=== PATIENT | female | born 1950 | race Caucasian/White ===

== ENCOUNTER 2017-04-07 10:28 | Emergency (ER) | payer MEDICARE, OTHER ==
[~2017-04-07] VITALS: Ht 162.6 cm; Wt 73.0 kg
[~2017-04-07 10:28] MED LIST: ALIGN4 MG PO; ANTIVERT12.5 MG PO; ANTIVERT25 MG PO; BENADRYL ALLE12.5 MG PO; BYSTOLIC 5 MG5 MG PO; CIPRO500 MG PO; CIPROFLOXACIN500 M1 PO; COZAAR 50 MG TA50 M2 PO; CYCLOBENZAPRINE5 MG PO; DIFLUCAN150 MG PO; DONNATAL EXTEN1 EACH; NAPROSYN375 MG PO; NORCO 5-325 TA1 EACH PO; OTHER MISCELL; PHENOBARBITAL60 MG; PHENOBARBITAL64.8 MG PO; PLAVIX 75 MG TA75 M1 PO; PRILOSEC40 MG PO; PROBIOTIC1 EAC1 PO; PYRIDIUM200 MG PO; ULTRAM 50MG TAB50 MG PO; VALIUM5 MG PO; WELCHOL 625 MG625 M1 PO; ZPAK PO
[2017-04-07] MEDS ORDERED: COZAAR 25 MG TA25 M1 PO (10:35)
[2017-04-07 11:54] VITALS: BP 142/57
== END 2017-04-07 11:55 | disposition home or self-care (01) ==
LOC: M.ERS 10:28
DX: M25.572 Pain in left ankle and joints of left foot (principal); I10 Essential (primary) hypertension; G43.909 Migraine, unspecified, not intractable, without status migrainosus; G40.909 Epilepsy, unspecified, not intractable, without status epilepticus; E78.00 Pure hypercholesterolemia, unspecified; Z86.73 Personal history of transient ischemic attack (TIA), and cerebral infarction without residual deficits; Z90.710 Acquired absence of both cervix and uterus; Z98.890 Other specified postprocedural states; Z87.440 Personal history of urinary (tract) infections; Z88.1 Allergy status to other antibiotic agents; Z88.6 Allergy status to analgesic agent; Z88.8 Allergy status to other drugs, medicaments and biological substances; Z88.2 Allergy status to sulfonamides

== ENCOUNTER → 2017-05-15 | Outpatient (CLI) | payer MEDICARE, OTHER ==
[~2017-05-15] MED LIST changes: +COZAAR 25 MG TA25 M1 PO
== END ==
LOC: M.CT 04-04 09:30
DX: I71.4 Abdominal aortic aneurysm, without rupture (principal); N28.1 Cyst of kidney, acquired; D71 Functional disorders of polymorphonuclear neutrophils

== ENCOUNTER 2017-10-06 18:08 | Emergency (ER) | payer MEDICARE, OTHER ==
[~2017-10-06] VITALS: Ht 162.6 cm; Wt 64.0 kg
[2017-10-06] MEDS ORDERED: NORCO 5-325 TA1 EACH PO (18:57)
[2017-10-06 19:15] VITALS: BP 118/67
== END 2017-10-06 19:33 | disposition home or self-care (01) ==
LOC: M.ERS 18:08
DX: S93.491A Sprain of other ligament of right ankle, initial encounter (principal); E78.5 Hyperlipidemia, unspecified; I10 Essential (primary) hypertension; G43.909 Migraine, unspecified, not intractable, without status migrainosus; Z86.73 Personal history of transient ischemic attack (TIA), and cerebral infarction without residual deficits; Z88.2 Allergy status to sulfonamides; Z91.041 Radiographic dye allergy status; Z88.6 Allergy status to analgesic agent; Z88.8 Allergy status to other drugs, medicaments and biological substances; X50.1XXA Overexertion from prolonged static or awkward postures, initial encounter; Y93.89 Activity, other specified; Y92.89 Other specified places as the place of occurrence of the external cause; Y99.8 Other external cause status

== ENCOUNTER → 2017-11-19 | Outpatient (CLI) | payer MEDICARE, OTHER | LOC: M.ULTRA 09:03 | DX: G45.9 Transient cerebral ischemic attack, unspecified (principal); I77.9 Disorder of arteries and arterioles, unspecified; I10 Essential (primary) hypertension; E78.5 Hyperlipidemia, unspecified; I71.4 Abdominal aortic aneurysm, without rupture; G43.909 Migraine, unspecified, not intractable, without status migrainosus ==

== ENCOUNTER → 2017-12-15 | Outpatient (CLI) | payer MEDICARE, OTHER | LOC: M.RAD 11-27 09:00 | DX: E89.40 Asymptomatic postprocedural ovarian failure (principal); Z86.73 Personal history of transient ischemic attack (TIA), and cerebral infarction without residual deficits ==

== ENCOUNTER 2018-04-07 13:31 | Inpatient (IN) | payer MEDICARE, OTHER ==
[~2018-04-07] VITALS: Ht 162.6 cm; Wt 60.5 kg
[2018-04-07 13:38] VITALS: BP 151/82
[2018-04-07] MEDS ORDERED: OMEPRAZOLE40 MG PO (13:41)
[2018-04-07 14:09] LABS: ABSOLUTE LYMPHOCYTES 0.7 thou/uL (0.8-5.3); ABSOLUTE MONOCYTES 0.3 thou/uL (0.0-1.2); ABSOLUTE NEUTROPHILS 1.9 thou/uL (1.6-8.1); BASOPHILS 1.2 %; EOSINOPHILS 0.9 %; HEMATOCRIT 35.7 % (37.0-47.0); HEMOGLOBIN 11.9 gm/dL (12.0-15.0); MCH 32.6 pg (26.0-34.0); MCHC 33.3 g/dL (28.0-37.0); MCV 98.1 fL (80.0-100.0); MONOCYTES 10.5 %; NUCLEATED RBCS 0 /100WBC; PLATELET COUNT* 264 thou/uL (150-400); POLYS 65.4 %; RBC 3.64 mil/uL (4.20-5.00); RDW-CV 13.3 % (10.5-14.5)
[2018-04-07 14:17] LABS: ANION GAP 8 mmol/L (7-16); BUN 21 mg/dL (7-18); CALCIUM 8.9 mg/dL (8.5-10.1); CHLORIDE 105 mmol/L (98-107); CO2 28 mmol/L (21-32); CREATININE 0.7 mg/dL (0.6-1.3); GLUCOSE 90 mg/dL (70-99); SODIUM 141 mmol/L (136-145)
[2018-04-07 14:34] LABS: ALBUMIN 3.6 g/dL (3.4-5.0); ALKALINE PHOSPHATASE 148 U/L (46-116); LIPASE 156 U/L (73-393); NT-PRO BRAIN NAT PEPTIDE 124 pg/mL (<300); SGOT 16 U/L (15-37); SGPT 19 U/L (30-65); TOTAL BILIRUBIN 0.2 mg/dL (<0.1-1.0); TOTAL PROTEIN 7.3 g/dL (6.4-8.2); TROPONIN-I LEVEL <0.06 ng/mL (<0.06)
[2018-04-07 16:42] LABS: URINE BILIRUBIN NEGATIVE (Negative); URINE BLOOD NEGATIVE (Negative); URINE CLARITY CLEAR; URINE COLOR YELLOW; URINE GLUCOSE-RANDOM NEGATIVE (Negative); URINE KETONES NEGATIVE (Negative); URINE LEUKOCYTES-REFLEX 1+ (Negative); URINE NITRITE-REFLEX NEGATIVE (Negative); URINE PROTEIN NEGATIVE (Negative); URINE SPECIFIC GRAVITY 1.025 (1.005-1.030); URINE UROBILINOGEN 0.2 E.U./dl (0.2-1.0)
[2018-04-07 16:55] LABS: CALCIUM OXALATE >10 Many /LPF (None Seen); MUCUS >6 Heavy strn/LPF (None Seen)
[2018-04-07 16:56] LABS: CASTS None Seen /LPF (None Seen); SQUAMOUS >10 Many /LPF (0-3); URINE RBC 3-10 Few /HPF (0-2); URINE WBC-REFLEX 6-15 Few /HPF (0-5)
[2018-04-07 16:57] LABS: BACTERIA-REFLEX 1-9 Few /HPF (None Seen)
--- NOTE | 2018-04-07 17:05 | EKG ---
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 : 1950 Requested By: Bibi Reynolds Order Number: [id number] MD: Jose Antonio Alan Measurements Intervals [place] Rate: 118 P: 75 UT: 149 QRS: 18 QRSD: 131 T: 167 QT: 355 QTc: 498 Interpretive Statements Sinus tachycardia Ventricular premature complex Left bundle branch block Artifact in lead(s) I,II,III,aVR,aVL,aVF,V1,V2,V3,V5,V6 Compared to ECG 08/27/2016 00:09:01 Ventricular premature complex(es) now present Sinus rhythm no longer present Electronically Signed On 04-07-2018 17:05:39 MEDICAL AIDES TEACHER by Jose Antonio Alan [email or web address] <ELECTRONICALLY SIGNED> By: Jose Antonio Alan MD, FACC 04/07/18 1705 1335 1335 Jose Antonio Alan MD, FAC /EPI
--- NOTE | 2018-04-07 19:42 | NUR ---
REPORT TAKEN FROM RADHA, WAITING FOR PATIENT'S ARRIVAL TO FLOOR.
[2018-04-07 19:46] VITALS: BP 124/61
[2018-04-07 20:00] VITALS: BP 147/64
[2018-04-08] VITALS: BP 107/49; BP 113/50
[2018-04-08 04:00] VITALS: BP 107/61
--- NOTE | 2018-04-08 04:43 | NUR ---
PATIENT RESTED IN BED, NO ACUTE CHANGES. PATIENT DID NOT SHOW SIGNS OF DISTRESS. FALL PRECAUTIONS IN PLACE, CALL LIGHT WITH IN REACH, HOURLY ROUNDING OBSERVED, BED ALARM ON. PATIENT DID NOT COMPLAIN OF PAIN.
[2018-04-08] MEDS ORDERED: ANTIVERT25 MG (07:25)
--- NOTE | 2018-04-08 07:25 | NUR ---
CHANGE OF SHIFT BEDSIDE REPORT GIVEN PATIENT SEEN AT BEDSIDE IN BED RESTING AND WATCHING TV ASSUMED PATIENT CARE
[2018-04-08 08:00] VITALS: BP 124/52
--- NOTE | 2018-04-08 10:52 | NUR ---
MET WITH PT TO DISCUSS HOME SITUATION/DC PLANNING. PT LIVES ALONE. SHE IS INDEPENDENT AND USES WALKER PRN, MOSTLY AT NIGHT. SHE HAS SUPORTIVE FAMILY THAT ASSIST NEEDED. 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 SHE REPORTS FEELING IMPROVED AND HOPES TO GO HOME SOON. SON/NEO ZAVALETA IS DPOA
[2018-04-08 12:07] VITALS: BP 123/78
[2018-04-08] MEDS ORDERED: KEFLEX500 M1 PO ×2 (13:30→14:01)
--- NOTE | 2018-04-08 16:55 | 2DMMODE ---
[place] [address] 2 D/M-MODE ECHOCARDIOGRAM Name: DIANE LADD Room: [address] IN [facility]#: [id number] Admission: 04/07/18 Attend Phys: Roland Gore Discharge: Date of : 46 Date of Service: 04/08/18 1654 Report #: [id number] THIS REPORT FOR: //name// APPROVED REPORT Study performed: 04/08/2018 10:03:44 EXAM: Comprehensive 2D, Doppler, and color-flow Echocardiogram Patient Location: In-Patient Room #: [facility] Status: routine BSA: 1.65 HR: 82 bpm BP: 124/52 mmHg Rhythm: NSR Other Information Study Quality: Good Indications Chest Pain 2D Dimensions IVSd: 12.03 (7-11mm) LVOT Diam: 19.56 (18-24mm) LVDd: 32.18 mm PWd: 12.38 (7-11mm) Ascending Ao: 28.10 (22-36mm) LVDs: 24.62 (25-40mm) Aortic Root: 30.97 mm Volumes Left Atrial Volume (Systole) LA ESV Index: 30.00 mL/m2 Aortic Valve AoV Peak En.: 1.24 m/s AO Peak Gr.: 6.16 mmHg LVOT Max P.56 mmHg AO Mean Gr.: 2.70 mmHg LVOT Mean P.56 mmHg LVOT Max V: 0.94 m/s AO V2 VTI: 21.14 cm LVOT Mean V: 0.56 m/s DAWSON (VTI): 2.47 cm2 LVOT V1 VTI: 17.35 cm Mitral Valve E/A Ratio: 0.90 MV Decel. Time: 211.34 ms MV E Max En.: 0.65 m/[place] [address] 2 D/M-MODE ECHOCARDIOGRAM Name: DIANE LADD Room: [address] IN .R.#: [id number] Admission: 04/07/18 Attend Phys: Roland Gore Discharge: Date of : 46 Date of Service: 04/08/18 1654 Report #: [id number] PHT: 61.29 ms MVA (PHT): 3.59 cm2 TDI E/Lateral E': 5.42 E/Medial E': 5.91 Medial E' En.: 0.11 m/s Lateral E' En.: 0.12 m/s Pulmonary Valve PV Peak En.: 0.91 m/s PV Peak Gr.: 3.32 mmHg Tricuspid Valve RAP Estimate: 5.00 mmHg TR Peak Gr.: 23.35 mmHg RVSP: 28.00 mmHg PA Pressure: 28.00 mmHg Left Ventricle The left ventricle is normal size. There is septal wall motion abnormality compatible with LBBB There is normal left ventricular wall thickness. Left ventricular systolic function is mildly decreased. LVEF is 50%. Grade I - abnormal relaxation pattern. Right Ventricle The right ventricle is normal size. The right ventricular systolic function is normal. Atria The left atrium size is normal. The right atrium size is normal. Aortic Valve Mild aortic valve sclerosis. No aortic regurgitation is present. There is no aortic valvular stenosis. Mitral Valve The mitral valve is normal in structure. Trace mitral regurgitation. No evidence of mitral valve stenosis. Tricuspid Valve The tricuspid valve is normal in structure. Trace tricuspid regurgitation. No pulmonary hypertension. Pulmonic Valve The pulmonary valve is normal in structure. Trace [place] [address] 2 D/M-MODE ECHOCARDIOGRAM Name: DIANE LADD Room: [address]#: [id number] Admission: 04/07/18 Attend Phys: Roland Gore Discharge: Date of : 46 Date of Service: 04/08/18 1654 Report #: [id number] Great Vessels The aortic root is normal in size. IVC is normal in size and collapses >50% with inspiration. Pericardium There is no pericardial effusion. <Conclusion> The left ventricle is normal size. There is normal left ventricular wall thickness. Left ventricular systolic function is mildly decreased. LVEF is 50%. Grade I - abnormal relaxation pattern. The right ventricle is normal size. The left atrium size is normal. Mild aortic valve sclerosis. No aortic regurgitation is present. There is no aortic valvular stenosis. The mitral valve is normal in structure. Trace mitral regurgitation. The tricuspid valve is normal in structure. IVC is normal in size and collapses >50% with inspiration. There is no pericardial effusion. There is septal wall motion abnormality compatible with LBBB <ELECTRONICALLY SIGNED> By: Sharan Ramos MD, FACC 04/08/18 1654 1654 1654 Sharan Ramos MD, FACC /INF
--- NOTE | 2018-04-08 18:41 | CARDNUC ---
[place] [address] CARDIAC NUCLEAR IMAGING REPORT Name: DIANE LADD Room: [address] IN [facility]#: [id number] Admission: 04/07/18 Attend Phys: Roland Gore Discharge: Date of : 46 Date of Service: 04/08/18 1840 Report #: [id number] THIS REPORT FOR: //name// APPROVED REPORT Study performed: 04/08/2018 08:23:00 Indication: Chest pain, Dyspnea Patient Location: In-Patient Room #: 224 Stress Tech: Minna Cabrera Stress Nurse: Carina Cleaning RN Ht: 5 ft 4 in Wt: 134 lbs BSA: 1.65 m2 BMI: 22.99 Medical History Medical History: tia, pfo, hyperlipidemia, hypertension Medications: losartan Allergies: nsaids, sulfa, iodine, asa, atorvastatin Cardiac Risk Factors: age, hyperlipidemia, hypertension Exercise History: Sedentary Resting Data Rest SPECT myocardial perfusion imaging was performed in supine position 45 minutes following the intravenous injection of 10.8 mCi of Tc-99m Sestamibi. Time of rest injection: 1135 Date: 04/08/2018 The images were gated to evaluate regional wall motion and calculate left ventricular ejection fraction. Administration Route: IV Administration Site: Left Arm Pharmacologic Stress Pharmacologic stress test was performed by injecting Regadenoson 0.4 mg IV push over 10-15 seconds immediately followed by the intravenous injection of 35.7 mCi of Tc-99m Sestamibi. Time of stress injection: 1530 Date: 04/08/2018 Administration Route: IV Administration Site: Left Arm Gated Stress SPECT was performed 45 minutes after stress injection. The images were gated to evaluate regional wall motion and calculate left ventricular ejection fraction. [place] [address] CARDIAC NUCLEAR IMAGING REPORT Name: DIANE LADD Room: [address]#: [id number] Admission: 04/07/18 Attend Phys: Roland Gore Discharge: Date of : 46 Date of Service: 04/08/18 1840 Report #: [id number] Stress Test Details Stress Test: Pharmacologic stress testing performed using 0.4 mg of regadenoson per 5 mL given IV over 10 seconds. Reason for pharmacologic stress test: LBBB. 60 mg caffeine given for tachycardia. HR Max Heart Rate (APMHR): 151 bpm Resting HR: 81 bpm Target HR (85% APMHR): 128 bpm Max HR Achieved: 154 bpm % of APMHR: 101 Recovery HR: 106 bpm BP Resting BP: 157/86 mmHg Max BP: 171/104 mmHg Recovery BP: 157/93 mmHg ECG Resting ECG: Sinus Rhythm, LBBB Stress ECG: Sinus Tachycardia ST Change: None Arrhythmia: None Recovery ECG: Sinus Tachycardia Recovery ST Change: None Recovery Arrhythmia: None Clinical Reason for Termination: Completed protocol Exercise duration: 0 min sec Exercise capacity: 1 METs The patient tolerated Lexiscan infusion without significant cardiac symptoms. Nurse Comments unsteady gait. pt tolerated procedure well. co "not feeling well" during tachyrdia Stress ECG Conclusion The baseline 12-lead EKG shows left bundle branch block. EKGs obtained during and post Lexiscan infusion show left bundle-branch block. Study Quality Study: Good Artifact: [place] [address] CARDIAC NUCLEAR IMAGING REPORT Name: DIANE LADD Room: [address]#: [id number] Admission: 04/07/18 Attend Phys: Roland Gore Discharge: Date of : 46 Date of Service: 04/08/18 1840 Report #: [id number] At rest, the left ventricular ejection fraction was 72%.. Post stress, the left ventricular ejection was 68%.. TID = 0.95. Perfusion Normal left ventricular perfusion. Wall Motion Left particular systolic function is well-preserved. There is dyssynergy consistent with bundle branch block noted. Nuclear Conclusion ECG Findings: negative for ischemia Clinical Findings: negative for ischemia Nuclear Findings: negative for ischemia Exercise Capacity: not assessed Left Ventricular Function: preserved Myocardial perfusion images show no defect to suggest infarct or ischemia. Global LV systolic function is well-preserved. This is not a high risk study. <Conclusion> The baseline 12-lead EKG shows left bundle branch block. EKGs obtained during and post Lexiscan infusion show left bundle-branch block. <ELECTRONICALLY SIGNED> By: Jose Antonio Alan MD, FACC 04/08/181839 39 39 Jose Antonio Alan MD, FACC /INF
--- NOTE | 2018-04-08 18:44 | EKG ---
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 : 1950 Requested By: Bibi Reynolds Order Number: [id number] MD: Jose Antonio Alan Measurements Intervals [place] Rate: 78 P: 36 [place]: 146 QRS: -5 QRSD: 134 T: 98 QT: 394 QTc: 449 Interpretive Statements Sinus rhythm Left bundle branch block Compared to ECG 04/07/2018 13:35:03 Sinus tachycardia no longer present Ventricular premature complex(es) no longer present Electronically Signed On 04-08-2018 18:44:41 ACCESS CLERK by Jose Antonio Alan [email or web address] <ELECTRONICALLY SIGNED> By: Jose Antonio Alan MD, FAC 04/08/18 1844 1623 1623 Jose Antonio Alan MD, [facility] /EPI
[2018-04-08 20:00] VITALS: BP 119/62
[2018-04-09] VITALS: BP 111/63
[2018-04-09 04:00] VITALS: BP 96/51
--- NOTE | 2018-04-09 05:27 | NUR ---
ASSUMED PT CARE AT 1930. ASSESSMENT COMPLETED CHARTED. NO C/O PAIN OR DISCOMFORT. PT WENT FROM UP WITH STANDBY TO UP AD ANTHONY. PT RESTING IN BED AT THIS TIME. ABLE TO MAKE NEEDS KNOWN. WILL CONTINUE TO MONITOR.
--- NOTE | 2018-04-09 07:20 | NUR ---
CHANGE OF SHIFT BEDSIDE REPORT GIVEN PATIENT SEEN AT BEDSIDE, IN BED RESTING ASSUMED PATIENT CARE
[2018-04-09 08:00] VITALS: BP 126/66
[2018-04-09 11:51] VITALS: BP 126/66
[2018-04-09 12:04] VITALS: BP 102/48
--- NOTE | 2018-04-09 12:50 | NUR ---
PATIENT DISCHARGED TO HOME. ALL DISCHARGE INFORMATION GIVEN, ACKNOWLEDGED, SIGNED COPIES GIVEN. IV AND HEART MONITOR REMOVED. PERSONAL BELONGINGS RETURNED. ASSISTED OUT AMBULATORY TO WAITING CAR
== END 2018-04-09 12:55 | disposition home or self-care (01) | DRG 392 ==
LOC: M.ERS 13:31 → M.TBA-ER 17:23 → M.2W 17:23
PROVIDERS: Nurse Practitioner Family; ADMIT Internal Medicine
DX: K21.9 Gastro-esophageal reflux disease without esophagitis (principal); N39.0 Urinary tract infection, site not specified; R65.10 Systemic inflammatory response syndrome (SIRS) of non-infectious origin without acute organ dysfunction; E78.5 Hyperlipidemia, unspecified; I10 Essential (primary) hypertension; G43.909 Migraine, unspecified, not intractable, without status migrainosus; G40.909 Epilepsy, unspecified, not intractable, without status epilepticus; Z86.73 Personal history of transient ischemic attack (TIA), and cerebral infarction without residual deficits; Z88.2 Allergy status to sulfonamides; Z88.8 Allergy status to other drugs, medicaments and biological substances; Z90.710 Acquired absence of both cervix and uterus; Z90.49 Acquired absence of other specified parts of digestive tract; Z88.6 Allergy status to analgesic agent; Z91.041 Radiographic dye allergy status; Z87.891 Personal history of nicotine dependence; Z79.82 Long term (current) use of aspirin; Z79.899 Other long term (current) drug therapy

== ENCOUNTER 2018-05-04 13:05 | Emergency (ER) | payer MEDICARE, OTHER ==
[~2018-05-04] VITALS: Ht 162.6 cm; Wt 60.3 kg
[~2018-05-04 13:05] MED LIST changes: +ANTIVERT25 MG; +KEFLEX500 M1 PO; +OMEPRAZOLE40 MG PO
[2018-05-04 14:12] LABS: ABSOLUTE LYMPHOCYTES 0.7 thou/uL (0.8-5.3); ABSOLUTE MONOCYTES 0.3 thou/uL (0.0-1.2); ABSOLUTE NEUTROPHILS 1.5 thou/uL (1.6-8.1); BASOPHILS 1.8 %; EOSINOPHILS 0.5 %; HEMATOCRIT 37.2 % (37.0-47.0); HEMOGLOBIN 12.7 gm/dL (12.0-15.0); LYMPHOCYTES 25.9 %; MCH 33.3 pg (26.0-34.0); MCHC 34.2 g/dL (28.0-37.0); MCV 97.3 fL (80.0-100.0); MONOCYTES 11.9 %; NUCLEATED RBCS 0 /100WBC; PLATELET COUNT* 273 thou/uL (150-400); POLYS 59.9 %; RBC 3.82 mil/uL (4.20-5.00); RDW-CV 13.5 % (10.5-14.5); WBC 2.5 thou/uL (4.0-11.0)
[2018-05-04 14:21] LABS: ANION GAP 7 mmol/L (7-16); APTT 27.4 Seconds (25.0-31.3); BUN 15 mg/dL (7-18); CALCIUM 9.3 mg/dL (8.5-10.1); CHLORIDE 103 mmol/L (98-107); CO2 29 mmol/L (21-32); CREATININE 0.8 mg/dL (0.6-1.3); GLUCOSE 93 mg/dL (70-99); POTASSIUM 4.5 mmol/L (3.5-5.1); PROTIME 10.5 Seconds (9.20-11.50); SODIUM 139 mmol/L (136-145)
[2018-05-04 14:28] LABS: ALBUMIN 3.9 g/dL (3.4-5.0); ALKALINE PHOSPHATASE 148 U/L (46-116); LIPASE 181 U/L (73-393); SGOT 17 U/L (15-37); SGPT 21 U/L (30-65); TOTAL BILIRUBIN 0.3 mg/dL (<0.1-1.0); TROPONIN-I LEVEL <0.06 ng/mL (<0.06)
[2018-05-04 15:21] LABS: URINE BILIRUBIN NEGATIVE (Negative); URINE BLOOD NEGATIVE (Negative); URINE CLARITY CLEAR; URINE COLOR YELLOW; URINE GLUCOSE-RANDOM NEGATIVE (Negative); URINE KETONES NEGATIVE (Negative); URINE LEUKOCYTES-REFLEX NEGATIVE (Negative); URINE NITRITE-REFLEX NEGATIVE (Negative); URINE PROTEIN NEGATIVE (Negative); URINE SPECIFIC GRAVITY <= 1.005 (1.005-1.030); URINE UROBILINOGEN 0.2 E.U./dl (0.2-1.0)
[2018-05-04 15:27] VITALS: BP 137/53
--- NOTE | 2018-05-04 16:26 | EKG ---
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
== END 2018-05-04 15:28 | disposition home or self-care (01) ==
LOC: M.ERS 13:05
PROVIDERS: Family Medicine
DX: R10.31 Right lower quadrant pain (principal); I10 Essential (primary) hypertension; G40.909 Epilepsy, unspecified, not intractable, without status epilepticus; G43.909 Migraine, unspecified, not intractable, without status migrainosus; E78.5 Hyperlipidemia, unspecified; Z90.49 Acquired absence of other specified parts of digestive tract; Z90.710 Acquired absence of both cervix and uterus; Z88.2 Allergy status to sulfonamides; Z88.5 Allergy status to narcotic agent; Z91.041 Radiographic dye allergy status; Z88.8 Allergy status to other drugs, medicaments and biological substances

== ENCOUNTER → 2018-05-28 | Outpatient (CLI) | payer MEDICARE, OTHER | LOC: M.RAD 05-27 09:30 | DX: Z12.31 Encounter for screening mammogram for malignant neoplasm of breast (principal) ==

== ENCOUNTER 2018-11-07 11:52 | Inpatient (IN) | payer MEDICARE, OTHER ==
[~2018-11-07] VITALS: Ht 162.6 cm; Wt 62.6 kg
[2018-11-07 12:02] VITALS: BP 149/65
[2018-11-07] MEDS ORDERED: CIPRO250 M1 PO (12:06)
[2018-11-07 12:20] LABS: URINE BILIRUBIN NEGATIVE (Negative); URINE BLOOD NEGATIVE (Negative); URINE CLARITY CLEAR; URINE COLOR DARK YELLOW; URINE GLUCOSE-RANDOM TRACE (Negative); URINE KETONES TRACE (Negative); URINE LEUKOCYTES-REFLEX NEGATIVE (Negative); URINE PROTEIN 1+ (Negative); URINE SPECIFIC GRAVITY 1.025 (1.005-1.030)
[2018-11-07 12:26] LABS: URINE NITRITE-REFLEX POSITIVE (Negative)
[2018-11-07 12:33] LABS: ABSOLUTE LYMPHOCYTES 0.6 thou/uL (0.8-5.3); ABSOLUTE MONOCYTES 0.3 thou/uL (0.0-1.2); ABSOLUTE NEUTROPHILS 2.1 thou/uL (1.6-8.1); BASOPHILS 1.1 %; EOSINOPHILS 0.7 %; HEMATOCRIT 35.6 % (37.0-47.0); HEMOGLOBIN 11.9 gm/dL (12.0-15.0); LYMPHOCYTES 18.7 %; MCH 32.5 pg (26.0-34.0); MCHC 33.6 g/dL (28.0-37.0); MCV 96.8 fL (80.0-100.0); MONOCYTES 10.1 %; MPV 7.7 fl. (7.2-11.1); NUCLEATED RBCS 0 /100WBC; PLATELET COUNT* 284 thou/uL (150-400); POLYS 69.4 %; RBC 3.67 mil/uL (4.20-5.00); WBC 3.1 thou/uL (4.0-11.0)
[2018-11-07 12:38] LABS: SQUAMOUS 0-3 Few /LPF (0-3)
[2018-11-07 12:39] LABS: CASTS None Seen /LPF (None Seen); CRYSTALS None Seen /LPF (None Seen); MUCUS >6 Heavy strn/LPF (None Seen); URINE RBC 0-2 Rare /HPF (0-2); URINE WBC-REFLEX 0-5 Rare /HPF (0-5)
[2018-11-07 12:44] LABS: APTT 26.8 Seconds (25.0-31.3); INR 1.1; PROTIME 11.1 Seconds (9.20-11.50)
[2018-11-07 12:45] LABS: ANION GAP 6 mmol/L (7-16); BUN 17 mg/dL (7-18); CALCIUM 8.8 mg/dL (8.5-10.1); CHLORIDE 103 mmol/L (98-107); CO2 30 mmol/L (21-32); CREATININE 1.2 mg/dL (0.6-1.3); GLUCOSE 84 mg/dL (70-99); SODIUM 139 mmol/L (136-145)
[2018-11-07 12:54] LABS: ALBUMIN 3.6 g/dL (3.4-5.0); ALKALINE PHOSPHATASE 146 U/L (46-116); SGOT 15 U/L (15-37); SGPT 19 U/L (30-65); TOTAL BILIRUBIN 0.3 mg/dL (<0.1-1.0); TOTAL PROTEIN 7.4 g/dL (6.4-8.2); TROPONIN-I LEVEL <0.06 ng/mL (<0.06)
[2018-11-07 13:30] VITALS: BP 125/61
[2018-11-07 16:00] VITALS: BP 135/67
[2018-11-07 20:00] VITALS: BP 145/70
[2018-11-08 04:41] LABS: HEMATOCRIT 29.5 % (37.0-47.0); MCH 32.5 pg (26.0-34.0); MCHC 33.6 g/dL (28.0-37.0); MCV 96.7 fL (80.0-100.0); RBC 3.05 mil/uL (4.20-5.00); RDW-CV 13.9 % (10.5-14.5); WBC 3.3 thou/uL (4.0-11.0)
[2018-11-08 04:47] LABS: HEMOGLOBIN 9.9 gm/dL (12.0-15.0)
[2018-11-08 04:51] LABS: CALCIUM 8.3 mg/dL (8.5-10.1); CREATININE 0.6 mg/dL (0.6-1.3); MAGNESIUM 1.8 mg/dL (1.8-2.4)
[2018-11-08 08:15] VITALS: BP 118/63
[2018-11-08 16:30] VITALS: BP 138/74
[2018-11-08 20:15] VITALS: BP 126/61
[2018-11-09 04:48] LABS: HEMOGLOBIN 9.7 gm/dL (12.0-15.0); MCH 32.3 pg (26.0-34.0); MCHC 33.5 g/dL (28.0-37.0); MCV 96.4 fL (80.0-100.0); RBC 3.01 mil/uL (4.20-5.00); RDW-CV 13.5 % (10.5-14.5); WBC 3.7 thou/uL (4.0-11.0)
[2018-11-09 05:01] LABS: ALBUMIN 2.9 g/dL (3.4-5.0); CALCIUM 8.2 mg/dL (8.5-10.1); CREATININE 0.6 mg/dL (0.6-1.3); MAGNESIUM 1.8 mg/dL (1.8-2.4); TOTAL BILIRUBIN 0.2 mg/dL (<0.1-1.0); TOTAL PROTEIN 5.9 g/dL (6.4-8.2)
[2018-11-09 07:25] VITALS: BP 106/58
--- NOTE | 2018-11-09 10:04 | EKG ---
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: : 1950 Requested By: Sandie Vargas Order Number: [id number] : Sharan Ramos Measurements Intervals [place] Rate: 92 P: 53 DE: 147 QRS: -3 QRSD: 135 T: 115 QT: 402 QTc: 498 Interpretive Statements Sinus rhythm Left bundle branch block Compared to ECG 05/04/2018 14:16:12 No significant changes Electronically Signed On 11-09-2018 10:03:47 CDT by Sharan Ramos [email or web address] <ELECTRONICALLY SIGNED> By: Sharan Ramos MD, [facility] 11/09/18 1003 1218 1218 Sharan Ramos MD, [facility] /EPI
[2018-11-09 11:49] VITALS: BP 106/58
[2018-11-09] MEDS ORDERED: PREMARIN30 GM VAG (12:35)
== END 2018-11-09 13:42 | disposition home or self-care (01) | DRG 689 ==
LOC: M.ERS 11:52 → M.ORTHSURG 12:35 → M.TBA-ER 12:35 → M.ORTHSURG 13:09
PROVIDERS: Nurse Practitioner Family; ADMIT Internal Medicine
DX: N30.01 Acute cystitis with hematuria (principal); R65.11 Systemic inflammatory response syndrome (SIRS) of non-infectious origin with acute organ dysfunction; E78.5 Hyperlipidemia, unspecified; I10 Essential (primary) hypertension; D64.9 Anemia, unspecified; G40.909 Epilepsy, unspecified, not intractable, without status epilepticus; G43.909 Migraine, unspecified, not intractable, without status migrainosus; Z86.73 Personal history of transient ischemic attack (TIA), and cerebral infarction without residual deficits; Z90.710 Acquired absence of both cervix and uterus; Z90.49 Acquired absence of other specified parts of digestive tract; Z88.2 Allergy status to sulfonamides; Z88.6 Allergy status to analgesic agent; Z91.041 Radiographic dye allergy status

== ENCOUNTER → 2019-02-15 | Outpatient (CLI) | payer MEDICARE, OTHER ==
[~2019-02-15] MED LIST changes: +CIPRO250 M1 PO; +PREMARIN30 GM VAG
== END ==
LOC: M.RAD 11:17
DX: M25.551 Pain in right hip (principal)

== ENCOUNTER → 2019-06-02 | Outpatient (CLI) | payer MEDICARE, OTHER | LOC: M.CT 10:30 → M.LAB 10:30 → M.CT 11:07 | DX: I25.119 Atherosclerotic heart disease of native coronary artery with unspecified angina pectoris (principal) ==

== ENCOUNTER → 2019-06-04 | Outpatient (CLI) | payer MEDICARE, OTHER ==
--- NOTE | 2019-06-04 17:28 | CARDNUC ---
[place] [address] CARDIAC NUCLEAR IMAGING REPORT Name: DIANE LADD Room: [facility]#: [id number] Admission: 06/04/19 Attend Phys: Jose Antonio Alan, Discharge: Date of : 46 Date of Service: 06/04/19 1727 Report #: [id number] THIS REPORT FOR: cc: Fabio Parson Ahmad W. DO [place], Michael J. MD [facility] ~ APPROVED REPORT Study performed: 06/04/2019 07:30:00 Indication: Chest pain Patient Location: Out-Patient Stress Tech: [place] Stress Nurse: Carina Cleaning RN Ht: 5 ft 5 in Wt: 142 lbs BSA: 1.71 m2 BMI: 23.62 Medical History Medical History: mi, Former Smoker, HTN, Hyperlipidemia Medications: repatha, losartan Allergies: nitrofurantoin, atorvastatin, ezefimibe, nsaids thimerosal Cardiac Risk Factors: age, , FHX of CAD, Hyperlipidemia, HTN, Tobacco History (Former) Exercise History: Indeterminate Resting Data Rest SPECT myocardial perfusion imaging was performed in supine position 30 minutes following the intravenous injection of 10.4 mCi of Tc-99m Sestamibi. Time of rest injection: 08:00 Date: 06/04/2019 The images were gated to evaluate regional wall motion and calculate left ventricular ejection fraction. Administration Route: IV Administration Site: Right AC Pharmacologic Stress Pharmacologic stress test was performed by injecting Regadenoson 0.4 mg IV push over 10-15 seconds immediately followed by the intravenous injection of 36.0 mCi of Tc-99m Sestamibi. Time of stress injection: 09:35 Date: 06/04/2019 Administration Route: IV Administration Site: [place] [address] CARDIAC NUCLEAR IMAGING REPORT Name: DIANE LADD [id number] Admission: 06/04/19 Attend Phys: Jose Antonio Alan, Discharge: Date of : 46 Date of Service: 06/04/19 1727 Report #: [id number] Heart Rate at time of stress injection: 158 bpm. Gated Stress SPECT was performed 40 minutes after stress injection. The images were gated to evaluate regional wall motion and calculate left ventricular ejection fraction. Prone imaging was performed. Stress Test Details Stress Test: Pharmacologic stress was paired with low level exercise. Reason for pharmacologic stress test: LBBB. HR Max Heart Rate (APMHR): 149 bpm Resting HR: 114 bpm Target HR (85% APMHR): 126 bpm Max HR Achieved: 156 bpm % of APMHR: 104 Recovery HR: 125 bpm BP Resting BP: 133/81 mmHg Max BP: 144/77 mmHg Recovery BP: 106/76 mmHg ECG Resting ECG: Sinus Rhythm, LBBB Stress ECG: Sinus tachycardia, LBBB ST Change: None Arrhythmia: None Recovery ECG: Sinus Rhythm, LBBB Recovery ST Change: None Recovery Arrhythmia: None Clinical Reason for Termination: Completed protocol Exercise duration: 0 min sec Exercise capacity: 1 METs The patient tolerated walking Lexiscan protocol without significant cardiac symptoms. Stress ECG Conclusion The baseline 12-lead EKG shows sinus rhythm with left bundle-branch block. EKGs obtained during and post Lexiscan infusion show sinus rhythm and sinus tachycardia with left bundle-branch block. Study Quality Study: Good Artifact: [place] [address] CARDIAC NUCLEAR IMAGING REPORT Name: DIANE LADD Room: [facility]#: [id number] Admission: 06/04/19 Attend Phys: Jose Antonio Alan, Discharge: Date of : 46 Date of Service: 06/04/19 1727 Report #: [id number] Study Data At rest, the left ventricular ejection fraction was 74%.. Post stress, the left ventricular ejection was 72%.. TID = 1.02. Perfusion Very mild photopenia noted in the inferior wall. This is more pronounced on resting and stress images. Review of the raw data suggests diaphragmatic attenuation artifact. No other significant fixed or reversible defects are identified. Wall Motion Global LV systolic function is normal. There is a septal wall motion abnormality consistent with underlying bundle branch block. Nuclear Conclusion ECG Findings: non-diagnostic Clinical Findings: negative for ischemia Nuclear Findings: negative for ischemia Exercise Capacity: not assessed Left Ventricular Function: preserved Risk Study: low Perfusion images show no defect to suggest infarct or ischemia. Left ventricular systolic function is preserved. This is a low risk study. <Conclusion> The baseline 12-lead EKG shows sinus rhythm with left bundle-branch block. EKGs obtained during and post Lexiscan infusion show sinus rhythm and sinus tachycardia with left bundle-branch block. <ELECTRONICALLY SIGNED> By: Jose Antonio Alan MD, FACC 06/04/19 172 26 26 Jose Antonio Alan MD, FACC /INF
== END ==
LOC: M.NUC 05-19 13:47
DX: I44.7 Left bundle-branch block, unspecified (principal); I25.119 Atherosclerotic heart disease of native coronary artery with unspecified angina pectoris; I49.8 Other specified cardiac arrhythmias

== ENCOUNTER 2020-03-09 11:14 | Emergency (ER) | payer MEDICARE, OTHER ==
[~2020-03-09] VITALS: Ht 162.6 cm; Wt 63.5 kg
[2020-03-09 12:32] LABS: URINE BILIRUBIN NEGATIVE (Negative); URINE BLOOD NEGATIVE (Negative); URINE CLARITY CLEAR; URINE COLOR YELLOW; URINE GLUCOSE-RANDOM NEGATIVE (Negative); URINE KETONES NEGATIVE (Negative); URINE LEUKOCYTES-REFLEX TRACE (Negative); URINE NITRITE-REFLEX NEGATIVE (Negative); URINE PROTEIN NEGATIVE (Negative); URINE UROBILINOGEN 0.2 E.U./dl (0.2-1.0)
[2020-03-09 12:43] LABS: BACTERIA-REFLEX 1-9 Few /HPF (None Seen); CASTS None Seen /LPF (None Seen); CRYSTALS None Seen /LPF (None Seen); MUCUS >6 Heavy strn/LPF (None Seen); SQUAMOUS >10 Many /LPF (0-3); URINE RBC None Seen /HPF (0-2); URINE WBC-REFLEX 0-5 Rare /HPF (0-5)
[2020-03-09 13:31] LABS: ABSOLUTE LYMPHOCYTES 0.8 thou/uL (0.8-5.3); ABSOLUTE MONOCYTES 0.4 thou/uL (0.0-1.2); ABSOLUTE NEUTROPHILS 2.2 thou/uL (1.6-8.1); BASOPHILS 0.9 %; EOSINOPHILS 0.6 %; HEMATOCRIT 36.1 % (37.0-47.0); HEMOGLOBIN 12.3 gm/dL (12.0-15.0); LYMPHOCYTES 22.8 %; MCH 32.7 pg (26.0-34.0); MONOCYTES 10.5 %; MPV 7.4 fl. (7.2-11.1); NUCLEATED RBCS 0 /100WBC; PLATELET COUNT* 292 thou/uL (150-400); POLYS 65.2 %; RBC 3.76 mil/uL (4.20-5.00); RDW-CV 13.4 % (10.5-14.5); WBC 3.4 thou/uL (4.0-11.0)
[2020-03-09 13:39] LABS: CALCIUM 8.6 mg/dL (8.5-10.1); CREATININE 0.8 mg/dL (0.6-1.3); POTASSIUM 3.9 mmol/L (3.5-5.1)
[2020-03-09 13:43] LABS: ALBUMIN 3.8 g/dL (3.4-5.0); TOTAL BILIRUBIN 0.4 mg/dL (<0.1-1.0); TOTAL PROTEIN 8.1 g/dL (6.4-8.2)
[2020-03-09] MEDS ORDERED: KEFLEX500 M1 PO (16:27)
[2020-03-09 16:53] VITALS: BP 112/55
--- NOTE | 2020-03-09 17:11 | EKG ---
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
== END 2020-03-09 16:36 | disposition home or self-care (01) ==
LOC: M.ERS 11:14
PROVIDERS: Physician Assistant
DX: N39.0 Urinary tract infection, site not specified (principal); M62.830 Muscle spasm of back; E78.5 Hyperlipidemia, unspecified; I10 Essential (primary) hypertension; G43.909 Migraine, unspecified, not intractable, without status migrainosus; Z87.440 Personal history of urinary (tract) infections; Z86.73 Personal history of transient ischemic attack (TIA), and cerebral infarction without residual deficits; Z88.2 Allergy status to sulfonamides; Z88.6 Allergy status to analgesic agent; Z91.041 Radiographic dye allergy status; Z88.8 Allergy status to other drugs, medicaments and biological substances; Z90.710 Acquired absence of both cervix and uterus; Z90.49 Acquired absence of other specified parts of digestive tract

== ENCOUNTER → 2020-08-16 | Outpatient (CLI) | payer MEDICARE, OTHER | LOC: M.RAD 10:33 | PROVIDERS: ATTEND Family Medicine | DX: M25.562 Pain in left knee (principal); M25.561 Pain in right knee ==

== ENCOUNTER 2020-09-23 14:23 | Inpatient (IN) | payer MEDICARE, OTHER ==
[~2020-09-23] VITALS: Ht 162.6 cm; Wt 72.6 kg
[2020-09-23 14:25] VITALS: BP 152/71
[2020-09-23] MEDS ORDERED: HYDROCHLOROTH12.5 M2 PO (14:30)
[2020-09-23] MEDS ORDERED: MACROBID 100 M100 MG PO (14:30)
[2020-09-23 14:39] LABS: ABSOLUTE LYMPHOCYTES 1.2 thou/uL (0.8-5.3); ABSOLUTE MONOCYTES 0.4 thou/uL (0.0-1.2); ABSOLUTE NEUTROPHILS 1.9 thou/uL (1.6-8.1); BASOPHILS 0.6 %; HEMATOCRIT 34.3 % (37.0-47.0); HEMOGLOBIN 11.7 gm/dL (12.0-15.0); LYMPHOCYTES 34.7 %; MCH 32.7 pg (26.0-34.0); MCHC 34.1 g/dL (28.0-37.0); MCV 96.2 fL (80.0-100.0); MONOCYTES 11.7 %; MPV 7.1 fl. (7.2-11.1); NUCLEATED RBCS 0 /100WBC; PLATELET COUNT* 322 thou/uL (150-400); RBC 3.56 mil/uL (4.20-5.00); WBC 3.6 thou/uL (4.0-11.0)
[2020-09-23 14:46] LABS: CALCIUM 8.6 mg/dL (8.5-10.1); CREATININE 0.8 mg/dL (0.6-1.3); POTASSIUM 3.8 mmol/L (3.5-5.1)
[2020-09-23 14:48] LABS: URINE BILIRUBIN NEGATIVE (Negative); URINE BLOOD NEGATIVE (Negative); URINE CLARITY CLEAR; URINE COLOR YELLOW; URINE GLUCOSE-RANDOM NEGATIVE (Negative); URINE KETONES NEGATIVE (Negative); URINE LEUKOCYTES NEGATIVE (Negative); URINE NITRITE NEGATIVE (Negative); URINE PROTEIN NEGATIVE (Negative); URINE UROBILINOGEN 0.2 E.U./dl (0.2-1.0)
[2020-09-23 14:51] LABS: ALBUMIN 3.7 g/dL (3.4-5.0); TOTAL BILIRUBIN 0.2 mg/dL (<0.1-1.0); TOTAL PROTEIN 7.7 g/dL (6.4-8.2)
[2020-09-23] MEDS ORDERED: AZO D-MANNOSE500 MG PO (15:13)
[2020-09-23] MEDS ORDERED: MINIVELLE1 EAC1 PO (15:15)
[2020-09-23] MEDS ORDERED: ESTRACE0.5 MG PO (15:17)
[2020-09-23 17:37] VITALS: BP 128/59
[2020-09-23 18:15] VITALS: BP 113/74
[2020-09-23 20:00] VITALS: BP 133/67
[2020-09-23 23:53] VITALS: BP 99/51
[2020-09-24 04:30] VITALS: BP 105/50
--- NOTE | 2020-09-24 12:02 | EKG ---
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 : 1950 Requested By: Barrett Nicolas Order Number: [id number] MD: Isrrael Ellison Measurements Intervals [place] Rate: 96 P: 73 MD: 143 QRS: -18 QRSD: 136 T: 125 QT: 386 QTc: 488 Interpretive Statements Sinus rhythm Left bundle branch block Compared to ECG 03/09/2020 14:04:40 No significant changes Electronically Signed On 09-24-2020 12:01:56 CDT by Isrrael Ellison [email or web address] <ELECTRONICALLY SIGNED> By: Costa Ellison MD, [facility] 09/24/20 1201 1427 1427 Costa Ellison MD, [facility] /EPI
[2020-09-24 12:46] VITALS: BP 114/69
[2020-09-24 16:36] VITALS: BP 122/59
[2020-09-24 20:00] VITALS: BP 101/61
[2020-09-25] VITALS (7 sets, daily range): BP systolic 94–127; BP diastolic 50–68
[2020-09-25 04:25] LABS: HEMATOCRIT 31.3 % (37.0-47.0); HEMOGLOBIN 10.9 gm/dL (12.0-15.0); MCH 33.2 pg (26.0-34.0); MCHC 34.8 g/dL (28.0-37.0); MCV 95.4 fL (80.0-100.0); MPV 7.6 fl. (7.2-11.1); RBC 3.28 mil/uL (4.20-5.00); RDW-CV 13.4 % (10.5-14.5); WBC 3.6 thou/uL (4.0-11.0)
[2020-09-25 04:47] LABS: ANION GAP 7 mmol/L (7-16); BUN 25 mg/dL (7-18); CALCIUM 8.9 mg/dL (8.5-10.1); CHLORIDE 102 mmol/L (98-107); CHOLESTEROL 297 mg/dL (<200); CO2 30 mmol/L (21-32); CREATININE 1.1 mg/dL (0.6-1.3); GLUCOSE 96 mg/dL (70-99); HDL CHOLESTEROL 68 mg/dL (>40); LDL CHOLESTEROL 216 mg/dL (<100); POTASSIUM 3.6 mmol/L (3.5-5.1); SODIUM 139 mmol/L (136-145); TC:HDL 4.4 Ratio (Not establshd); TRIGLYCERIDE 66 mg/dL (<150); VLDL 13 mg/dL (<40)
[2020-09-25 04:51] LABS: SERUM ASSESSMENT CLEAR
--- NOTE | 2020-09-25 10:27 | EKG ---
[place] [address] ELECTROCARDIOGRAM REPORT Name: DIANE LADD Room: [address] ADM IN M.R.#: [id number] Admission: 09/23/20 Attend Phys: Roland Gore Discharge: Date of : 46 Date of Service: 09/24/20 1314 Report #: [id number] THIS REPORT FOR: //name// 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
[2020-09-25] MEDS ORDERED: COZAAR 50 MG TA50 M1 PO (13:35)
--- NOTE | 2020-09-25 16:05 | 2DMMODE ---
[place] [address] 2 D/M-MODE ECHOCARDIOGRAM Name: LADDDIANE Room: [address] IN [facility].#: [id number] Admission: 09/23/20 Attend Phys: Roland Gore Discharge: Date of : 46 Date of Service: 09/25/20 1605 Report #: [id number] THIS REPORT FOR: cc: Fabio Parson,Benji Adamson MD [facility] ~ APPROVED REPORT Study performed: 09/25/2020 14:28:14 EXAM: Comprehensive 2D, Doppler, and color-flow Echocardiogram Patient Location: In-Patient Room #: 220 Status: routine BSA: 1.76 HR: 84 bpm BP: 104/68 mmHg Rhythm: NSR Other Information Study Quality: Good Indications Chest Pain 2D Dimensions IVSd: 7.92 (7-11mm) LVOT Diam: 20.98 (18-24mm) LVDd: 36.32 mm PWd: 7.14 (7-11mm) Ascending Ao: 28.56 (22-36mm) LVDs: 24.17 (25-40mm) Aortic Root: 30.89 mm Volumes Left Atrial Volume (Systole) LA ESV Index: 23.50 mL/m2 Aortic Valve AoV Peak En.: 1.32 m/s AO Peak Gr.: 6.97 mmHg LVOT Max P.09 mmHg AO Mean Gr.: 3.73 mmHg LVOT Mean P.77 mmHg LVOT Max V: 1.01 m/s AO V2 VTI: 23.17 cm LVOT Mean V: 0.61 m/s DAWSON (VTI): 2.57 cm2 LVOT V1 VTI: 17.20 [place] [address] 2 D/M-MODE ECHOCARDIOGRAM Name: DIANE LADD Room: [address] IN [facility].#: [id number] Admission: 09/23/20 Attend Phys: Roland Gore Discharge: Date of : 46 Date of Service: 09/25/20 1605 Report #: [id number] Mitral Valve E/A Ratio: 1.01 MV Decel. Time: 142.96 ms MV E Max En.: 0.61 m/s MV PHT: 41.46 ms MVA (PHT): 5.31 cm2 TDI E/Lateral E': 6.78 E/Medial E': 7.63 Medial E' En.: 0.08 m/s Lateral E' En.: 0.09 m/s Pulmonary Valve PV Peak En.: 0.97 m/s PV Peak Gr.: 3.78 mmHg Tricuspid Valve RAP Estimate: 5.00 mmHg TR Peak Gr.: 23.66 mmHg RVSP: 28.00 mmHg PA Pressure: 28.00 mmHg Left Ventricle The left ventricle is normal size. paradoxical septal motion There is normal left ventricular wall thickness. Left ventricular systolic function is normal. The left ventricular ejection fraction is within the normal range. LVEF is 55-60%. The left ventricular diastolic function is normal. Right Ventricle The right ventricle is normal size. The right ventricular systolic function is normal. Atria The left atrium size is normal. The right atrium size is normal. Aortic Valve The aortic valve is normal in structure. No aortic regurgitation is present. There is no aortic valvular stenosis. Mitral Valve The mitral valve is normal in structure. Trace mitral regurgitation. No evidence of mitral valve stenosis. Tricuspid Valve The tricuspid valve is normal in structure. Trace tricuspid regurgitation. [place] [address] 2 D/M-MODE ECHOCARDIOGRAM Name: DIANE LADD Room: [address] IN [facility]#: [id number] Admission: 09/23/20 Attend Phys: Roland Gore Discharge: Date of : 46 Date of Service: 09/25/20 1605 Report #: [id number] Pulmonic Valve The pulmonary valve is normal in structure. Trace pulmonic regurgitation. Great Vessels The aortic root is normal in size. IVC is normal in size and collapses >50% with inspiration. Pericardium There is no pericardial effusion. <Conclusion> LVEF is 55-60%. Trace mitral regurgitation. Trace tricuspid regurgitation. No pulmonary hypertension. There is no pericardial effusion. <ELECTRONICALLY SIGNED> By: Benji Cassidy MD, [facility] 09/25/20 1605 1605 1605 Benji Cassidy MD, FAC /INF
--- NOTE | 2020-09-25 16:17 | CARDNUC ---
[place] [address] CARDIAC NUCLEAR IMAGING REPORT Name: DIANE LADD Room: [address] IN [facility]#: [id number] Admission: 09/23/20 Attend Phys: Roland Gore Discharge: Date of : 46 Date of Service: 09/25/20 1616 Report #: [id number] THIS REPORT FOR: cc: Fabio Parson Ahmad W. DO Liston, Michael J. MD [facility] ~ APPROVED REPORT Imaging Protocol: Stress Tc-99m/Rest Tc-99m 1 day Study performed: 09/24/2020 11:05:00 Indication: CHEST PAIN Patient Location: In-Patient Room #: 220 Stress Tech: [place] Stress Nurse: Nakia Simons RN Ht: 5 ft 4 in Wt: 157 lbs BSA: 1.76 m2 HR: 94 bpm BP: 108/70 mmHg BMI: 26.94 Medical History Medical History: CHEST PAIN RADIATE TO BACK AND LEFT ARM, possible remote [place], atherosclerosis, GERD, HX migraines, epilepsy, hypercholesterolemia, bilateral carotid stenosis, AAA, HX TIA, tremor, back pain, weak/fatigue, HTN, past smoker, LBBB, FHX CAD. Medications: HCTZ, LOSARTAN K+, PLAVIX. Allergies: SULFA ABX, IODINE, ASA, METHYLPREDISOLONE, ATORVASTATIN, THIMEROSAL, SULFAMETHOXAZOLE. Cardiac Risk Factors: Age, HTN, Tobacco History (Former), FHX of CAD, AAA, atherosclerosis, bilateral carotid stenosis, LBBB. Previous Cardiac Procedures: Myocardial infarction per patient Pretest Chest Pain Characteristics: No chest pain Exercise History: Sedentary Physical Disabilities: weakness/fatigue, instabililty, LBBB. Meds Held (24 hrs): None Resting Data Rest SPECT myocardial perfusion imaging was performed in supine position 30 minutes following the intravenous injection of 11.0 mCi of Tc-99m Sestamibi. Time of rest injection: 09:00 [place] [address] CARDIAC NUCLEAR IMAGING REPORT Name: DIANE LADD Room: [address]#: [id number] Admission: 09/23/20 Attend Phys: Roland Gore Discharge: Date of : 46 Date of Service: 09/25/20 1616 Report #: [id number] The images were gated to evaluate regional wall motion and calculate left ventricular ejection fraction. Administration Route: IV Administration Site: Left AC Pharmacologic Stress Pharmacologic stress test was performed by injecting Regadenoson 0.4 mg IV push over 10-15 seconds immediately followed by the intravenous injection of 35.8 mCi of Tc-99m Sestamibi. Time of stress injection: 10:30 Administration Route: IV Administration Site: Left AC Heart Rate at time of stress injection: 152 bpm. Gated Stress SPECT was performed 40 minutes after stress injection. The images were gated to evaluate regional wall motion and calculate left ventricular ejection fraction. Prone imaging was performed. Stress Test Details Stress Test: Pharmacologic stress testing performed using 0.4 mg of regadenoson per 5 mL given IV over 10 seconds. Reason for pharmacologic stress test: weakness/fatigue, instabililty, LBBB.. HR Max Heart Rate (APMHR): 148 bpm Resting HR: 94 bpm Target HR (85% APMHR): 125 bpm Max HR Achieved: 152 bpm % of APMHR: 102 Recovery HR: 122 bpm BP Resting BP: 108/70 mmHg Max BP: 135/67 mmHg Recovery BP: 102/69 mmHg ECG Resting ECG: Sinus Rhythm, LBBB Stress ECG: Sinus Tachycardia, LBBB ST Change: None Arrhythmia: APC's Recovery ECG: Sinus Tachycardia, LBBB Recovery Arrhythmia: APC's Clinical Reason for Termination: Completed protocol Stress Symptoms: labored breathing, [place] [address] CARDIAC NUCLEAR IMAGING REPORT Name: DIANE LADD Room: [address]#: [id number] Admission: 09/23/20 Attend Phys: Roland Gore Discharge: Date of : 46 Date of Service: 09/25/20 1616 Report #: [id number] Exercise duration: 00 min 00 sec Exercise capacity: 1.00 METs The patient tolerated Lexiscan infusion without significant cardiac symptoms. Nurse Comments A 70 year old female inpatient tolerated a sitting lexiscan nuclear stress test. Recovery unremarkable. Patient stated she felt good when escorted via wheelchair to Nuclear Medicine for imaging. Stress ECG Conclusion The baseline twelve-lead EKG shows sinus rhythm with left bundle branch block. EKGs obtained during and post Lexiscan infusion show sinus rhythm and sinus tachycardia with left bundle branch block. There were occasional premature atrial contractions noted. Study Quality Study: Good Artifact: No artifact Study Data At rest, the left ventricular ejection fraction was 60%.. Post stress, the left ventricular ejection was 73%.. TID = 0.97. Perfusion Perfusion images showed uniform uptake of the radioisotope throughout the myocardium. There were no defects to suggest infarct or ischemia. Wall Motion There is a septal wall motion abnormality noted consistent with underlying bundle branch block. Global LV systolic function is preserved. Nuclear Conclusion ECG Findings: non-diagnostic Clinical Findings: negative for ischemia Nuclear Findings: negative for ischemia Exercise Capacity: not assessed Left Ventricular Function: Preserved Risk Study: low Perfusion images show no defect to suggest infarct or ischemia. Left ventricular systolic function is preserved. This [place] [address] CARDIAC NUCLEAR IMAGING REPORT Name: DIANE LADD Room: [address] IN [facility]#: [id number] Admission: 09/23/20 Attend Phys: Roland Gore Discharge: Date of : 46 Date of Service: 09/25/20 1616 Report #: [id number] <Conclusion> The baseline twelve-lead EKG shows sinus rhythm with left bundle branch block. EKGs obtained during and post Lexiscan infusion show sinus rhythm and sinus tachycardia with left bundle branch block. There were occasional premature atrial contractions noted. <ELECTRONICALLY SIGNED> By: Jose Antonio Alan MD, FACC 09/25/20 1616 15 161 Jose Antonio Alan MD, FACC /INF
--- NOTE | 2020-09-26 07:48 | CON ---
[address] [address] CONSULTATION Name: DIANE LADD Silverio Room: [address]#: [id number] Admission: 09/23/20 Attend Phys: Shan Bergman Discharge: 09/25/20 Date of : 46 Report #: [id number] THIS REPORT FOR: cc: Fabio Parson Ahmad W. DO Biggs, F. Douglas MD [facility] ~ DOC #: [id number] Isrrael Ellison MD [facility] DATE OF CONSULTATION: 09/24/2020 CARDIOLOGY CONSULTATION HISTORY OF PRESENT ILLNESS: I was asked by Dr. Gore to see this 70-year-old white female in cardiology consultation for evaluation and treatment of chest pain. This lady alleges to have had a heart attack in the past, although it has been so long ago, she cannot remember it and she tells me that her doctor told her that he looked back in the old records that showed evidence of a heart attack. She sees Dr. Alan and in his most recent note, he says she has not had a heart attack. That note was fairly recent, it was 04/28/2000. She does have atherosclerosis and has bilateral carotid stenosis. She is known to have some degree of coronary artery disease. She has high blood pressure, hypercholesterolemia and a family history of coronary artery disease. She does not have diabetes. She does not smoke. She also has an abdominal aortic aneurysm. On her CT of her abdomen yesterday, her aneurysm was 4.2 x 4.2 x 6.5, which is essentially stable compared to a prior fairly recent abdominal CT. This lady's pain began in her lower abdomen. She also had some back pain with it. It went up into her chest. It was a dull pain. She says it is like her known GERD. It did radiate to the left shoulder. It was a 4/6 pain. The pain was substernal. It did come up from the abdomen to the substernal chest area. It lasted 30 minutes. She got some sort of pain medicine in the ER. She did not get nitroglycerin. This lady does not smoke. She has not had diabetes. She has not had any further pain. Troponins are negative x 2 and those were actually 14 hours apart. Her EKG shows left bundle branch block, which is chronic. She apparently has a UTI and got Macrodantin yesterday morning from her primary care doctor. Currently, she feels well. PAST MEDICAL HISTORY: Includes a TIA and the above problems. She also has a seizure disorder allegedly. She has a right upper extremity tremor that is apparently chronic also. PAST SURGICAL HISTORY: She has had an appendectomy, cholecystectomy, hysterectomy and mastoid surgery. FAMILY HISTORY: Remarkable for her father of cancer. Her mother had heart disease. Grandmother had heart disease. [place] [address] CONSULTATION Name: DIANE LADD [address] [id number] Admission: 09/23/20 Attend Phys: Shan Bergman Discharge: 09/25/20 Date of : 46 Report #: [id number] Sister has lung disease and her brother has had an PR. SOCIAL HISTORY: She does not smoke, quit several years ago. She does not drink, does not use illegal drugs. REVIEW OF SYSTEMS: Negative except for the history given above. Please see our review of system form. The review of systems was negative for some 40 different complaints in 14 different system categories. PHYSICAL EXAMINATION: GENERAL: She presents as a well-developed, well-nourished white female in no acute distress. VITAL SIGNS: Her pulse was 76 and regular. Blood pressure 105/50, respirations 18 regular, temperature was 97.7. HEENT: Atraumatic. Eyes clear. Mucous membranes are moist. NECK: Supple. There is no jugular venous distention or hepatojugular reflux. Thyroid is not enlarged. There is no adenopathy. SKIN: Warm and dry. LUNGS: Clear to auscultation and percussion. HEART: Revealed normal first and second heart sounds. There is soft S4. There is no S3. There are no murmurs, rubs, thrills, heaves or gallops. PMI is nondisplaced. ABDOMEN: Soft, flat, nontender. There are no palpable masses, no organomegaly. EXTREMITIES: Reveal no cyanosis, clubbing or edema. NEUROLOGIC: The patient mentated normally, talked normally and moved all extremities normally. IMAGING: Chest x-ray showed no acute cardiopulmonary process. IMPRESSION: 1. Chest pain of uncertain cause, possibly cardiac. 2. Coronary artery disease. 3. Essential hypertension. 4. Hypercholesterolemia. 5. Carotid stenosis bilaterally. 6. History of possible myocardial infarction. 7. Abdominal aortic aneurysm that appears to be stable. 8. Abdominal pain and back pain, possibly related to urinary tract infection. 8. Apparent urinary tract infection. 9. Left bundle branch block. RECOMMENDATIONS: She should have a nuclear stress test and an echo. Thank you very much for asking me to see this patient. If there are any [facility] [address] CONSULTATION Name: DIANE LADD Room: [address] IN M.R.#: [id number] Admission: 09/23/20 Attend Phys: Shan Bergman Discharge: 09/25/20 Date of : 46 Report #: [id number] questions, please feel free to contact me. Isrrael Ellison MD FACC DFB/MAX <ELECTRONICALLY SIGNED> By: Costa Ellison MD, ALEXA 09/26/20 0748 [id number]. Isrrael Ellison MD, ALEXA /nt
== END 2020-09-25 17:37 | disposition home or self-care (01) | DRG 313 ==
LOC: M.ERS 14:23 → M.2W 17:21 → M.TBA-ER 17:21 → M.2W 17:45
PROVIDERS: Emergency Medicine; Family Medicine; ADMIT Internal Medicine; ATTEND Internal Medicine
DX: R07.89 Other chest pain (principal); K21.9 Gastro-esophageal reflux disease without esophagitis; E78.5 Hyperlipidemia, unspecified; I10 Essential (primary) hypertension; G43.909 Migraine, unspecified, not intractable, without status migrainosus; G40.909 Epilepsy, unspecified, not intractable, without status epilepticus; I25.10 Atherosclerotic heart disease of native coronary artery without angina pectoris; E78.00 Pure hypercholesterolemia, unspecified; I65.23 Occlusion and stenosis of bilateral carotid arteries; I71.4 Abdominal aortic aneurysm, without rupture; Z20.822 Contact with and (suspected) exposure to COVID-19; Z86.73 Personal history of transient ischemic attack (TIA), and cerebral infarction without residual deficits; I25.2 Old myocardial infarction; Z90.710 Acquired absence of both cervix and uterus; Z90.49 Acquired absence of other specified parts of digestive tract; Z79.899 Other long term (current) drug therapy; Z88.2 Allergy status to sulfonamides; Z88.8 Allergy status to other drugs, medicaments and biological substances

== ENCOUNTER 2020-10-23 09:08 | Emergency (ER) | payer MEDICARE, OTHER ==
[~2020-10-23] VITALS: Ht 162.6 cm; Wt 65.8 kg
[~2020-10-23 09:08] MED LIST changes: +AZO D-MANNOSE500 MG PO; +COZAAR 50 MG TA50 M1 PO; +ESTRACE0.5 MG PO; +HYDROCHLOROTH12.5 M2 PO; +MACROBID 100 M100 MG PO; +MINIVELLE1 EAC1 PO
[2020-10-23] MEDS ORDERED: TOPROL XL25 MG PO (09:28)
[2020-10-23 10:38] VITALS: BP 127/62
== END 2020-10-23 10:38 | disposition home or self-care (01) ==
LOC: M.ERS 09:08
DX: S93.602A Unspecified sprain of left foot, initial encounter (principal); E78.5 Hyperlipidemia, unspecified; Z88.2 Allergy status to sulfonamides; Z88.8 Allergy status to other drugs, medicaments and biological substances; Z88.6 Allergy status to analgesic agent; Z90.710 Acquired absence of both cervix and uterus; G43.909 Migraine, unspecified, not intractable, without status migrainosus; Z98.890 Other specified postprocedural states; Z86.73 Personal history of transient ischemic attack (TIA), and cerebral infarction without residual deficits; X58.XXXA Exposure to other specified factors, initial encounter; Y93.89 Activity, other specified; Y92.89 Other specified places as the place of occurrence of the external cause; Y99.8 Other external cause status